=== PATIENT | male | born 1935 | race Caucasian/White ===

== ENCOUNTER 2016-11-23 07:40 | Outpatient (CLI) | payer MEDICARE, OTHER ==
[2016-11-23 08:00] LABS: BASOPHILS # (AUTO) 0.1 10^3/uL (0.0-0.1); BASOPHILS % (AUTO) 0.8 %; EOSINOPHILS # (AUTO) 0.3 10^3/uL (0.0-0.7); EOSINOPHILS % (AUTO) 4.1 %; HCT - HEMATOCRIT 40.5 % (42.0-52.0); HGB - HEMOGLOBIN 14.1 g/dL (14.0-18.0); LYMPHOCYTES # (AUTO) 1.6 10^3/uL (1.5-3.5); MEAN CORPUSCULAR HEMOGLOBIN 31.4 pg (27.0-31.0); MEAN CORPUSCULAR HGB CONC 34.8 g/dL (32.0-36.0); MEAN CORPUSCULAR VOLUME 90.2 fL (80.0-94.0); MEAN PLATELET VOLUME 8.1 fL (7.4-11.4); MONOCYTES # (AUTO) 0.6 10^3/uL (0.0-1.0); MONOCYTES % (AUTO) 8.5 %; NEUTROPHILS % (AUTO) 61.6 %; RED BLOOD COUNT 4.49 10^6/uL (4.70-6.10); RED CELL DISTRIBUTION WIDTH 13.1 % (12.0-15.0); UNCORRECTED WHITE BLOOD COUNT 6.5 x10^3/uL; WHITE BLOOD COUNT 6.5 x10^3/uL (4.8-10.8)
[2016-11-23 08:16] LABS: ALBUMIN/GLOBULIN RATIO 1.3 (1.0-2.2); BILIRUBIN,TOTAL 0.9 mg/dL (0.2-1.0); BUN - BLOOD UREA NITROGEN 13 mg/dL (6-20); CALCIUM 10.3 mg/dL (8.5-10.3); CARBON DIOXIDE - CO2 31 mmol/L (21-32); CHLORIDE 95 mmol/L (101-111); CHOL/HDL RATIO 3.2 (<5.0); CHOLESTEROL 174 mg/dL; GFR - MDRD 72 (>89); GLUCOSE 108 mg/dL (70-100); HDL CHOLESTEROL 55 mg/dL; LDL/HDL RATIO 1.6 (<3.6); POTASSIUM 4.4 mmol/L (3.5-5.0); SODIUM 133 mmol/L (135-145); TOTAL PROTEIN 8.2 g/dL (6.7-8.2); TRIGLYCERIDES 149 mg/dL; VLDL CHOLESTEROL 30 mg/dL
== END 2016-11-23 07:41 | disposition home or self-care (01) ==
LOC: LAB 07:40
PROVIDERS: ATTEND Internal Medicine
DX: E03.9 Hypothyroidism, unspecified (principal); C61 Malignant neoplasm of prostate; E78.2 Mixed hyperlipidemia; Z79.899 Other long term (current) drug therapy
CPT/HCPCS: 36415; 80053; 80061; 84153; 84443; 85025

== ENCOUNTER 2017-12-14 10:12 | Outpatient (CLI) | payer MEDICARE, OTHER ==
--- NOTE | 2017-12-14 10:58 | XRAY Report ---
Procedure Date: 12/14/2017 Accession Number: [id number] / [id number] Procedure: XR - Pelvis 1 View CPT Code: FULL RESULT: EXAM: Pelvis 1 View DATE: 12/14/2017 10:51 AM CLINICAL HISTORY: BACK PAIN, LUMBAR WITH RADICULOPATHY COMPARISON: None. TECHNIQUE: 1 view. FINDINGS: Bones: Normal. No fracture or bone lesion. Joints: Mild degenerative changes of the hip joints. Soft Tissues: Postoperative changes. IMPRESSION: Mild osteoarthritis of the hips. RADIA
--- NOTE | 2017-12-14 10:58 | XRAY Report ---
Procedure Date: 12/14/2017 Accession Number: [id number] / [id number] Procedure: XR - Lumbar Spine Complete CPT Code: FULL RESULT: EXAM: Lumbar Spine Complete DATE: 12/14/2017 10:51 AM CLINICAL HISTORY: BACK PAIN WITH LUMBAR RADICULOPATHY COMPARISON: None. TECHNIQUE: 4 views. FINDINGS: Alignment: Mild degenerative anterolisthesis of L4 on L5. Bones: Five [id number] lumbar vertebral bodies are present. No fractures or bone lesions. Disks: Moderate degenerative disc disease. Facets: Moderate facet arthropathy. Sacroiliac Joints: Unremarkable. Soft Tissues: Normal bowel gas pattern. 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 IMPRESSION: Moderate degenerative changes, with degenerative anterolisthesis of L4 on L5. No evidence of fracture. RADIA
== END 2017-12-14 10:13 | disposition home or self-care (01) ==
LOC: DI 10:12
PROVIDERS: ATTEND Physician Assistant Medical
DX: M51.16 Intervertebral disc disorders with radiculopathy, lumbar region (principal); M16.0 Bilateral primary osteoarthritis of hip; Z85.46 Personal history of malignant neoplasm of prostate
CPT/HCPCS: 72110; 72170

== ENCOUNTER 2018-11-21 09:56 | Outpatient (CLI) | payer MEDICARE, OTHER ==
[2018-11-21 10:34] LABS: VBG PH 7.31 (7.31-7.41)
[2018-11-21 11:12] LABS: THYROID STIMULATING HORMONE 2.96 uIU/mL (0.34-5.60)
[2018-11-21 11:14] LABS: FREE T4 (FREE THYROXINE) 0.93 ng/dL (0.58-1.64)
== END 2018-11-21 09:57 | disposition home or self-care (01) ==
LOC: LAB 09:56
PROVIDERS: ATTEND Family Medicine
DX: K59.09 Other constipation (principal); E21.3 Hyperparathyroidism, unspecified; E83.52 Hypercalcemia
CPT/HCPCS: 36415; 80048; 82330; 84439; 84443; 84481

== ENCOUNTER 2019-02-20 16:28 | Outpatient (CLI) | payer MEDICARE, OTHER ==
--- NOTE | 2019-02-21 10:45 | XRAY Report ---
Reason: KNEE PAIN,ACUTE Procedure Date: 02/20/2019 Accession Number: [id number] / [id number] Procedure: XR - Knee 3 View RT CPT Code: FULL RESULT: EXAM: RIGHT KNEE RADIOGRAPHY EXAM DATE: 02/20/2019 04:45 PM. CLINICAL HISTORY: KNEE Pain, acute. COMPARISON: None. TECHNIQUE: 3 views. FINDINGS: Bones: Normal. No fractures or bone lesions. Joints: Minimal degenerative changes with ossific spurring, worse at the patellofemoral joint. No effusion. No subluxations. Soft Tissues: Atherosclerotic disease. No soft tissue swelling. IMPRESSION: Minimal degenerative changes of the right knee without acute abnormality seen. RADIA
== END 2019-02-20 16:29 | disposition home or self-care (01) ==
LOC: DI 16:28
PROVIDERS: ATTEND Family Medicine
DX: M17.11 Unilateral primary osteoarthritis, right knee (principal)

== ENCOUNTER 2019-02-28 12:09 | Emergency (ER) | payer MEDICARE, OTHER ==
[2019-02-28 12:56] LABS: BASOPHILS # (AUTO) 0.1 10^3/uL (0.0-0.1); BASOPHILS % (AUTO) 0.6 %; EOSINOPHILS # (AUTO) 0.1 10^3/uL (0.0-0.7); EOSINOPHILS % (AUTO) 1.5 %; LYMPHOCYTES # (AUTO) 1.2 10^3/uL (1.5-3.5); MEAN CORPUSCULAR HEMOGLOBIN 31.4 pg (27.0-31.0); MEAN CORPUSCULAR HGB CONC 33.9 g/dL (32.0-36.0); MEAN CORPUSCULAR VOLUME 92.8 fL (80.0-94.0); MONOCYTES # (AUTO) 0.5 10^3/uL (0.0-1.0); MONOCYTES % (AUTO) 5.7 %; NEUTROPHILS # (AUTO) 6.2 10^3/uL (1.5-6.6); NEUTROPHILS % (AUTO) 76.8 %; PLT - PLATELET COUNT 234 10^3/uL (130-450); RED BLOOD COUNT 4.14 10^6/uL (4.70-6.10); RED CELL DISTRIBUTION WIDTH 12.4 % (12.0-15.0); WHITE BLOOD COUNT 8.1 x10^3/uL (4.8-10.8)
[2019-02-28 13:01] LABS: INR 1.1 (0.8-1.2); PT - PROTHROMBIN TIME 11.9 secs (9.9-12.6)
--- NOTE | 2019-02-28 13:08 | ED Physician Documentation ---
PD HPI GI BLEED - Stated complaint Stated Complaint: blood in stool - Chief complaint Chief Complaint: Abd Pain - History obtained from History obtained from: Patient, Family - History of Present Illness Timing - onset: Enter time (0900), Today Timing - duration: Hours Timing - details: Abrupt onset, Now resolved Associated symptoms: BRBPR Contributing factors: Other (corn byrne sized bowel movement covered in blood) Improved by: BM Similar symptoms before: Diagnosis (bleeding diverticula) Recently seen: Not recently seen - Additional information Additional information: 83-year-old male with a prior history of diverticulitis and a bleeding diverticula who is had a section of his colon removed has had a corn cob sized bowel movement today that was covered in blood. He states that he had this about 9 AM he did not have any specific pain associated with this and there was some fair amount of blood in the commode as well as some small clots and he has not had any further blood out per rectum and does not have any urgency to defecate. He is not lightheaded and dizzy. He does have a prior history of GI bleed requiring acute transfusion and at that time did have symptoms. Review of Systems Constitutional: denies: Fever Eyes: denies: Decreased vision Ears: denies: Ear pain Nose: denies: Congestion Respiratory: denies: Cough GI: reports: Constipation, Bloody / black stool. denies: Abdominal Pain, Vomiting : denies: Dysuria, Frequency PD PAST MEDICAL HISTORY - Past Medical History Past Medical History: Yes Cardiovascular: Other Respiratory: None Endocrine/Autoimmune: None GI: GERD, Chronic constipation, Hemorrhoids, Diverticulitis : None HEENT: None Psych: None Musculoskeletal: None Derm: None - Past Surgical History Past Surgical History: Yes General: Appendectomy, Bowel surgery, Colonoscopy, EGD Cardiovascular: Valve replacement HEENT: Cataracts - Present Medications Home Medications: Ambulatory Orders Medication Instructions Recorded Confirmed Levothyroxine [Synthroid] 25 mcg ORAL DAILY 12/10/14 01/24/16 Rosuvastatin Calcium [Crestor] 10 mg PO DAILY 12/10/14 01/24/16 Docusate Sodium 100Mg Capsule 100 mg PO DAILY 12/19/14 01/24/16 [Colace] Ferrous Sulfate [Slow Release Iron] 45 mg PO DAILY 12/19/14 01/24/16 Omeprazole 20 mg PO DAILY 12/19/14 01/24/16 Acetaminophen 1,000 mg PO Q6H PRN 01/15/16 01/24/16 Aspirin 325 mg PO DAILY 01/15/16 01/24/16 Ciclopirox/Ure/Camph/Menth/Euc 1 applic TOP PRN PRN 01/15/16 01/24/16 [Ciclopirox 8% Treatment Kit] Clopidogrel [Plavix] 75 mg PO DAILY 01/15/16 01/24/16 Docusate Sodium 250Mg Capsule 1 tab PO PRN PRN 01/15/16 01/24/16 [Colace] Guaifenesin/Pseudoephedrne HCl 1 tab PO BID 01/15/16 01/24/16 [Mucinex D ER 600-60 mg Tablet] Ibuprofen 600 mg PO Q6H PRN 01/15/16 01/24/16 Metoprolol Succinate [Toprol Xl] 12.5 mg PO DAILY 01/15/16 01/24/16 Phenylephrine HCl/[place] Butter 1 supp.rect DAILY PRN 01/15/16 01/24/16 [Preparation H Suppository] Polyethylene Glycol 3350 [Miralax] 1 cap PO PRN PRN 01/15/16 01/24/16 - Allergies Allergies/Adverse Reactions: Allergies Allergy/AdvReac Type Severity Reaction Status Date / Time oxycodone Allergy Unknown Verified 02/28/19 12:23 epinephrine AdvReac Respiratory Verified 02/28/19 12:23 - Social History Does the pt smoke?: No Smoking Status: Never smoker Does the pt drink ETOH?: Yes Does the pt have substance abuse?: No - Immunizations Immunizations are current?: Yes - POLST Patient has POLST: No PD ED PE NORMAL - Vitals Vital signs reviewed: Yes (normal ) - General General: Alert and oriented X 3, No acute distress, Well developed/nourished - HEENT HEENT: Atraumatic, PERRL, EOMI - Neck Neck: Supple, no meningeal sign, No bony TTP - Cardiac Cardiac: RRR, Other (2/6 holosystolic murmer at LSB) - Respiratory Respiratory: No respiratory distress, Clear bilaterally - Abdomen Abdomen: Soft, Non tender - Rectal Rectal: Other (There is blood over the rectum dried and there is old blood in the vault on the glove. ) - Back Back: No CVA TTP, No spinal TTP - Derm Derm: Normal color, Warm and dry, No rash - Extremities Extremities: No deformity, No edema - Neuro Neuro: Alert and oriented X 3, demo specialist 2-12 intact, No motor deficit, No sensory deficit, Normal speech Eye Opening: Spontaneous Motor: Obeys Commands Verbal: Oriented GCS Score: 15 - Psych Psych: Normal mood, Normal affect Results - Vitals Vitals: Vital Signs - 24 hr 02/28/19 02/28/19 12:23 13:12 Temperature 36.9 C Heart Rate 73 64 Respiratory 17 24 Rate Blood Pressure 99/77 135/81 H O2 Saturation 100 94 Oxygen O2 Source Room air - Labs Labs: Laboratory Tests 02/28/19 02/28/19 02/28/19 12:05 12:05 12:05 WBC 8.1 RBC 4.14 L Hgb 13.0 L Hct 38.4 L MCV 92.8 MCH 31.4 H MCHC 33.9 RDW 12.4 Plt Count 234 MPV 10.0 Neut # (Auto) 6.2 Lymph # (Auto) 1.2 L [place] # (Auto) 0.5 Eos # (Auto) 0.1 Baso # (Auto) 0.1 Absolute Nucleated RBC 0.00 Nucleated RBC % 0.0 PT 11.9 INR 1.1 Sodium 138 Potassium 4.2 Chloride 96 L Carbon Dioxide 30 Anion Gap 12.0 BUN 24 H Creatinine 1.0 Estimated GFR (MDRD) 71 L Glucose 93 Calcium 9.9 Total Bilirubin 0.7 AST 25 ALT 18 Alkaline Phosphatase 77 Total Protein 8.3 H Albumin 4.5 Globulin 3.8 Albumin/Globulin Ratio 1.2 Lipase 47 Blood Type Antibody Screen 02/28/19 02/28/19 12:10 14:10 WBC RBC Hgb 10.8 L Hct 32.4 L MCV MCH MCHC RDW Plt Count MPV Neut # (Auto) Lymph # (Auto) [place] # (Auto) Eos # (Auto) Baso # (Auto) Absolute Nucleated RBC Nucleated RBC % PT INR Sodium Potassium Chloride Carbon Dioxide Anion Gap BUN Creatinine Estimated GFR (MDRD) Glucose Calcium Total Bilirubin AST ALT Alkaline Phosphatase Total Protein Albumin Globulin Albumin/Globulin Ratio Lipase Blood Type B POSITIVE Antibody Screen NEGATIVE PD MEDICAL DECISION MAKING - ED course Complexity details: reviewed old records, reviewed results, re-evaluated patient, considered differential, d/w patient, d/w family ED course: 83-year-old male with prior history of GI bleeds has developed acute blood loss today associated with a corn cob sized bowel movement and he has not had blood out since 9 AM. Despite this his initial H&H were mildly depressed and a second H&H shows significant drop despite no further blood out. Dr. Carr is consulted in the case and will evaluate the patient in the ED. Surgeon consults the hospitalist re: pre-op eval and is told to seek higher level of care in this patient with aortic stenosis. Departure - Departure Disposition: 02 Transfer Acute Care Hosp Clinical Impression: Rectal bleeding, Acute blood loss anemia
[2019-02-28 13:11] LABS: ALBUMIN 4.5 g/dL (3.2-5.5); ALBUMIN/GLOBULIN RATIO 1.2 (1.0-2.2); BILIRUBIN,TOTAL 0.7 mg/dL (0.2-1.0); CALCIUM 9.9 mg/dL (8.5-10.3); TOTAL PROTEIN 8.3 g/dL (6.7-8.2)
[2019-02-28 14:16] LABS: HGB - HEMOGLOBIN 10.8 g/dL (14.0-18.0)
[2019-02-28 15:31] LABS: BILIRUBIN,URINE NEGATIVE (NEGATIVE); GLUCOSE, URINE (UA) NEGATIVE (NEGATIVE); KETONES,URINE (UA) NEGATIVE (NEGATIVE); LEUKOCYTE ESTERASE, URINE NEGATIVE (NEGATIVE); NITRITE,URINE NEGATIVE (NEGATIVE); OCCULT BLOOD,URINE NEGATIVE (NEGATIVE); PROTEIN,URINE NEGATIVE (NEGATIVE); UROBILINOGEN,URINE 0.2 (NORMAL) E.U./dL (NORMAL)
[2019-02-28 15:32] LABS: CLARITY,URINE CLEAR (CLEAR)
[2019-02-28 16:52] VITALS: BP 162/86
== END 2019-02-28 17:35 | disposition short-term general hospital (02) ==
LOC: ED 12:09
DX: K62.5 Hemorrhage of anus and rectum (principal); D62 Acute posthemorrhagic anemia; Z87.19 Personal history of other diseases of the digestive system; Z90.49 Acquired absence of other specified parts of digestive tract; I35.0 Nonrheumatic aortic (valve) stenosis; Z79.82 Long term (current) use of aspirin
CPT/HCPCS: 36415; 80053; 81001; 81003; 83690; 85014; 85018; 85025; 85610; 86850; 86900; 86901; 87086; 99284; 99285

== ENCOUNTER 2019-02-28 17:27 | Outpatient (CLI) | payer MEDICARE, OTHER | END 2019-02-28 17:28 | disposition short-term general hospital (02) | LOC: EMS 17:27 | PROVIDERS: ATTEND Surgery | DX: K92.2 Gastrointestinal hemorrhage, unspecified (principal); I35.0 Nonrheumatic aortic (valve) stenosis | CPT/HCPCS: A0425; A0426 ==

== ENCOUNTER 2019-03-11 14:32 | Outpatient (CLI) | payer MEDICARE, OTHER ==
[2019-03-11 15:00] LABS: BASOPHILS # (AUTO) 0.1 10^3/uL (0.0-0.1); BASOPHILS % (AUTO) 1.1 %; EOSINOPHILS # (AUTO) 0.1 10^3/uL (0.0-0.7); EOSINOPHILS % (AUTO) 1.1 %; HGB - HEMOGLOBIN 11.7 g/dL (14.0-18.0); LYMPHOCYTES # (AUTO) 1.5 10^3/uL (1.5-3.5); LYMPHOCYTES % (AUTO) 19.8 %; MEAN CORPUSCULAR HEMOGLOBIN 30.5 pg (27.0-31.0); MEAN CORPUSCULAR HGB CONC 32.7 g/dL (32.0-36.0); MEAN CORPUSCULAR VOLUME 93.5 fL (80.0-94.0); MEAN PLATELET VOLUME 9.6 fL (7.4-11.4); MONOCYTES # (AUTO) 0.7 10^3/uL (0.0-1.0); MONOCYTES % (AUTO) 9.4 %; NEUTROPHILS # (AUTO) 5.1 10^3/uL (1.5-6.6); NEUTROPHILS % (AUTO) 67.9 %; PLT - PLATELET COUNT 304 10^3/uL (130-450); RED BLOOD COUNT 3.83 10^6/uL (4.70-6.10); RED CELL DISTRIBUTION WIDTH 12.7 % (12.0-15.0); WHITE BLOOD COUNT 7.5 x10^3/uL (4.8-10.8)
[2019-03-11 15:06] LABS: CALCIUM 9.8 mg/dL (8.5-10.3)
== END 2019-03-11 14:33 | disposition home or self-care (01) ==
LOC: LAB 14:32
PROVIDERS: ATTEND Family Medicine
DX: K57.31 Diverticulosis of large intestine without perforation or abscess with bleeding (principal)
CPT/HCPCS: 36415; 80048; 85025

== ENCOUNTER 2019-03-18 20:53 | Emergency (ER) | payer MEDICARE, OTHER ==
[2019-03-18 21:28] LABS: BASOPHILS # (AUTO) 0.1 10^3/uL (0.0-0.1); BASOPHILS % (AUTO) 1.2 %; EOSINOPHILS # (AUTO) 0.2 10^3/uL (0.0-0.7); EOSINOPHILS % (AUTO) 2.5 %; HGB - HEMOGLOBIN 11.3 g/dL (14.0-18.0); LYMPHOCYTES # (AUTO) 1.5 10^3/uL (1.5-3.5); LYMPHOCYTES % (AUTO) 23.2 %; MEAN CORPUSCULAR HEMOGLOBIN 30.3 pg (27.0-31.0); MEAN CORPUSCULAR HGB CONC 32.1 g/dL (32.0-36.0); MEAN CORPUSCULAR VOLUME 94.4 fL (80.0-94.0); MEAN PLATELET VOLUME 9.6 fL (7.4-11.4); MONOCYTES # (AUTO) 0.5 10^3/uL (0.0-1.0); NEUTROPHILS # (AUTO) 4.2 10^3/uL (1.5-6.6); NEUTROPHILS % (AUTO) 64.8 %; PLT - PLATELET COUNT 237 10^3/uL (130-450); RED BLOOD COUNT 3.73 10^6/uL (4.70-6.10); RED CELL DISTRIBUTION WIDTH 12.8 % (12.0-15.0); WHITE BLOOD COUNT 6.4 x10^3/uL (4.8-10.8)
[2019-03-18 21:41] LABS: ALBUMIN 4.1 g/dL (3.2-5.5); ALBUMIN/GLOBULIN RATIO 1.3 (1.0-2.2); BILIRUBIN,TOTAL 0.5 mg/dL (0.2-1.0); CALCIUM 9.6 mg/dL (8.5-10.3); TOTAL PROTEIN 7.3 g/dL (6.7-8.2)
--- NOTE | 2019-03-18 23:30 | ED Physician Documentation ---
PD HPI GI BLEED - Stated complaint Stated Complaint: BLOOD IN STOOL - Chief complaint Chief Complaint: Abd Pain - History obtained from History obtained from: Patient, Family - History of Present Illness Timing - onset: Today Timing - duration: Hours Timing - details: Abrupt onset, Still present Associated symptoms: BRBPR, Abdominal pain Contributing factors: Other (hx of diverticular bleed) Improved by: Laying still Similar symptoms before: Diagnosis (diverticular bleeding) Recently seen: Admitted - Additional information Additional information: 83-year-old male with prior history of diverticulitis and bleeding diverticula who is had a portion of the colon removed his had a bowel movement again today associated with bleeding. He had blood around the stool and had clots in the toilet. He has had a prior similar episode 3 weeks ago at which time is transferred to [facility] [place] and he had a syncopal episode the day of discharge and required 2 more days of hospitalization. He states that he had no further bloody output and his blood count had stabilized. There was no specific explanation of why he had the syncopal episode. He was eventually diagnosed with vasovagal syncope. 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 Review of Systems Constitutional: denies: Fever Ears: denies: Ear pain Nose: denies: Congestion Throat: denies: Sore throat Cardiac: denies: Chest pain / pressure, Palpitations Respiratory: denies: Dyspnea, Cough GI: reports: Abdominal Pain (minimal), Bloody / black stool. denies: Nausea, Vomiting, Constipation, Diarrhea : denies: Dysuria, Frequency PD PAST MEDICAL HISTORY - Past Medical History Past Medical History: Yes Cardiovascular: High cholesterol, Valve disorder, Other Respiratory: None Neuro: None Endocrine/Autoimmune: None GI: GERD, Chronic constipation, Hemorrhoids, Diverticulitis : None HEENT: None Psych: None Musculoskeletal: None Derm: None Other Past Medical History: transcath heart valve - Past Surgical History Past Surgical History: Yes General: Appendectomy, Bowel surgery, Colonoscopy, EGD Cardiovascular: Valve replacement HEENT: Cataracts - Present Medications Home Medications: Ambulatory Orders Medication Instructions Recorded Confirmed Levothyroxine [Synthroid] 25 mcg ORAL DAILY 12/10/14 01/24/16 Rosuvastatin Calcium [Crestor] 10 mg PO DAILY 12/10/14 01/24/16 Docusate Sodium 100Mg Capsule 100 mg PO DAILY 12/19/14 01/24/16 [Colace] Ferrous Sulfate [Slow Release Iron] 45 mg PO DAILY 12/19/14 01/24/16 Omeprazole 20 mg PO DAILY 12/19/14 01/24/16 Acetaminophen 1,000 mg PO Q6H PRN 01/15/16 01/24/16 Aspirin 325 mg PO DAILY 01/15/16 01/24/16 Ciclopirox/Ure/Camph/Menth/Euc 1 applic TOP PRN PRN 01/15/16 01/24/16 [Ciclopirox 8% Treatment Kit] Clopidogrel [Plavix] 75 mg PO DAILY 01/15/16 01/24/16 Docusate Sodium 250Mg Capsule 1 tab PO PRN PRN 01/15/16 01/24/16 [Colace] Guaifenesin/Pseudoephedrne HCl 1 tab PO BID 01/15/16 01/24/16 [Mucinex D ER 600-60 mg Tablet] Ibuprofen 600 mg PO Q6H PRN 01/15/16 01/24/16 Metoprolol Succinate [Toprol Xl] 12.5 mg PO DAILY 01/15/16 01/24/16 Phenylephrine HCl/[place] Butter 1 supp.rect DAILY PRN 01/15/16 01/24/16 [Preparation H Suppository] Polyethylene Glycol 3350 [Miralax] 1 cap PO PRN PRN 01/15/16 01/24/16 - Allergies Allergies/Adverse Reactions: Allergies Allergy/AdvReac Type Severity Reaction Status Date / Time oxycodone Allergy Unknown Verified 03/18/19 20:58 epinephrine AdvReac Respiratory Verified 03/18/19 20:58 - Social History Does the pt smoke?: No Smoking Status: Never smoker Does the pt drink ETOH?: Yes Does the pt have substance abuse?: No - Immunizations Immunizations are current?: Yes - POLST Patient has POLST: No PD ED PE NORMAL - Vitals Vital signs reviewed: Yes (hypertensive ) - General General: Alert and oriented X 3, No acute distress, Well developed/nourished - HEENT HEENT: Atraumatic, PERRL, EOMI - Neck Neck: Supple, no meningeal sign - Cardiac Cardiac: RRR, No murmur - Respiratory Respiratory: No respiratory distress, Clear bilaterally - Abdomen Abdomen: Soft, Non tender - Back Back: No CVA TTP, No spinal TTP - Derm Derm: Normal color, Warm and dry, No rash - Extremities Extremities: No deformity, No edema - Neuro Neuro: Alert and oriented X 3, touch up worker 2-12 intact, No motor deficit, No sensory deficit, Normal speech Eye Opening: Spontaneous Motor: Obeys Commands Verbal: Oriented GCS Score: 15 - Psych Psych: Normal mood, Normal affect Results - Vitals Vitals: Vital Signs - 24 hr 03/18/19 03/18/19 03/19/19 20:58 22:49 00:00 Temperature 37 C 36.6 C Heart Rate 79 66 61 Respiratory 16 18 18 Rate Blood Pressure 188/76 H 158/87 H 126/73 O2 Saturation 99 99 96 03/19/19 03/19/19 03/19/19 02:12 04:10 06:15 Temperature 36.9 C 36.7 C Heart Rate 66 61 72 Respiratory 14 16 15 Rate Blood Pressure 150/74 H 143/74 H 125/76 O2 Saturation 98 98 97 Oxygen O2 Source Room air - Labs Labs: Laboratory Tests 03/18/19 03/18/19 03/18/19 21:24 21:24 23:44 WBC 6.4 RBC 3.73 L Hgb 11.3 L Hct 35.2 L MCV 94.4 H MCH 30.3 MCHC 32.1 RDW 12.8 Plt Count 237 MPV 9.6 Neut # (Auto) 4.2 Lymph # (Auto) 1.5 [place] # (Auto) 0.5 Eos # (Auto) 0.2 Baso # (Auto) 0.1 Absolute Nucleated RBC 0.00 Nucleated RBC % 0.0 Sodium 136 Potassium 4.5 Chloride 99 L Carbon Dioxide 28 Anion Gap 9.0 BUN 18 Creatinine 1.0 Estimated GFR (MDRD) 71 L Glucose 146 H Calcium 9.6 Total Bilirubin 0.5 AST 25 ALT 17 Alkaline Phosphatase 64 Total Protein 7.3 Albumin 4.1 Globulin 3.2 Albumin/Globulin Ratio 1.3 Lipase 64 H Urine Color Urine Clarity Urine pH Ur Specific [place] Urine Protein Urine Glucose (UA) Urine Ketones Urine Occult Blood Urine Nitrite Urine Bilirubin Urine Urobilinogen Ur Leukocyte Esterase Ur Microscopic Review Urine Culture Comments Blood Type B POSITIVE Antibody Screen NEGATIVE 03/19/19 03/19/19 03/19/19 00:03 02:02 06:37 WBC RBC Hgb 10.4 L 10.2 L Hct 31.4 L 30.4 L MCV MCH MCHC RDW Plt Count MPV Neut # (Auto) Lymph # (Auto) [place] # (Auto) Eos # (Auto) Baso # (Auto) Absolute Nucleated RBC Nucleated RBC % Sodium Potassium Chloride Carbon Dioxide Anion Gap BUN Creatinine Estimated GFR (MDRD) Glucose Calcium Total Bilirubin AST ALT Alkaline Phosphatase Total Protein Albumin Globulin Albumin/Globulin Ratio Lipase Urine Color YELLOW Urine Clarity CLEAR Urine pH 6.0 Ur Specific [place] 1.015 Urine Protein NEGATIVE Urine Glucose (UA) NEGATIVE Urine Ketones NEGATIVE Urine Occult Blood TRACE-INTA Urine Nitrite NEGATIVE Urine Bilirubin NEGATIVE Urine Urobilinogen 0.2 (NORMAL) Ur Leukocyte Esterase NEGATIVE Ur Microscopic Review NOT INDICATED Urine Culture Comments NOT INDICATED Blood Type Antibody Screen PD MEDICAL DECISION MAKING - ED course Complexity details: reviewed old records, reviewed results, re-evaluated patient, considered differential, d/w patient, d/w family ED course: 83 y/o male with recurrent bleeding had spontaneous resolution last month and today he is kept in the ED for repeat H&H. He has a BM in the ED with some clot present a small amount of blood per the RN. Departure - Departure Disposition: 01 Home, Self Care Clinical Impression: Lower GI bleeding Condition: Stable Instructions: ED Hematochezia Stable Follow-Up: Arie Huynh MD [Primary Care Provider] -
[2019-03-19 00:10] LABS: BILIRUBIN,URINE NEGATIVE (NEGATIVE); CLARITY,URINE CLEAR (CLEAR); GLUCOSE, URINE (UA) NEGATIVE (NEGATIVE); KETONES,URINE (UA) NEGATIVE (NEGATIVE); LEUKOCYTE ESTERASE, URINE NEGATIVE (NEGATIVE); NITRITE,URINE NEGATIVE (NEGATIVE); OCCULT BLOOD,URINE TRACE-INTA (NEGATIVE); PROTEIN,URINE NEGATIVE (NEGATIVE); UROBILINOGEN,URINE 0.2 (NORMAL) E.U./dL (NORMAL)
[2019-03-19 02:10] LABS: HGB - HEMOGLOBIN 10.4 g/dL (14.0-18.0)
[2019-03-19 06:40] LABS: HGB - HEMOGLOBIN 10.2 g/dL (14.0-18.0)
[2019-03-19 08:23] VITALS: BP 143/79
== END 2019-03-19 08:27 | disposition home or self-care (01) ==
LOC: ED 20:53
DX: K92.1 Melena (principal); R10.9 Unspecified abdominal pain; Z87.19 Personal history of other diseases of the digestive system; Z90.49 Acquired absence of other specified parts of digestive tract; Z95.4 Presence of other heart-valve replacement; Z79.82 Long term (current) use of aspirin
CPT/HCPCS: 36415; 80053; 81001; 81003; 83690; 85014; 85018; 85025; 86850; 86900; 86901; 87086; 99282; 99284

== ENCOUNTER 2022-11-16 12:53 | Outpatient (CLI) | payer MEDICARE, OTHER ==
--- NOTE | 2022-11-17 10:09 | XRAY Report ---
PROCEDURE: Pelvis 3 View INDICATIONS: OTHER BURSITIS OF HIP TECHNIQUE: 3 view(s) of the pelvis acquired. COMPARISON: None. FINDINGS: Bones: No fractures or dislocations. No suspicious bony lesions. Moderate osteoarthritic changes in hips and sacrum iliac joints bilaterally. Moderate degenerative disc and facet disease in the lower lumbar spine. Soft tissues: Visualized bowel gas pattern is normal. No suspicious soft tissue calcifications. M ultiple surgical clips are present in pelvis. IMPRESSION: 1. No acute bony abnormality. 2. Mild osteoarthritis. 3. To evaluate ascites, MRI may be helpful. Reviewed by: Traci Birmingham MD on 11/17/2022 10:08 AM PDT Approved by: Traci Birmingham MD on 11/17/2022 10:08 AM PDT Station ID: [id number]
== END 2022-11-16 12:54 | disposition home or self-care (01) ==
LOC: DI 12:53
PROVIDERS: ATTEND Family Medicine
DX: M70.71 Other bursitis of hip, right hip (principal); M16.0 Bilateral primary osteoarthritis of hip; M47.898 Other spondylosis, sacral and sacrococcygeal region

== ENCOUNTER 2022-12-19 12:47 | Outpatient (CLI) | payer MEDICARE, OTHER ==
[2022-12-19 13:26] LABS: BASOPHILS # (AUTO) 0.1 10^3/uL (0.0-0.1); BASOPHILS % (AUTO) 0.8 %; EOSINOPHILS # (AUTO) 0.1 10^3/uL (0.0-0.7); EOSINOPHILS % (AUTO) 2.2 %; HCT - HEMATOCRIT 37.4 % (42.0-52.0); HGB - HEMOGLOBIN 12.5 g/dL (14.0-18.0); LYMPHOCYTES # (AUTO) 1.4 10^3/uL (1.5-3.5); LYMPHOCYTES % (AUTO) 21.2 %; MEAN CORPUSCULAR HEMOGLOBIN 30.9 pg (27.0-31.0); MEAN CORPUSCULAR HGB CONC 33.4 g/dL (32.0-36.0); MEAN CORPUSCULAR VOLUME 92.3 fL (80.0-94.0); MEAN PLATELET VOLUME 9.9 fL (7.4-11.4); MONOCYTES # (AUTO) 0.5 10^3/uL (0.0-1.0); MONOCYTES % (AUTO) 8.2 %; NEUTROPHILS # (AUTO) 4.4 10^3/uL (1.5-6.6); NEUTROPHILS % (AUTO) 67.3 %; PLT - PLATELET COUNT 222 10^3/uL (130-450); RED BLOOD COUNT 4.05 10^6/uL (4.70-6.10); RED CELL DISTRIBUTION WIDTH 12.6 % (12.0-15.0); WHITE BLOOD COUNT 6.5 x10^3/uL (4.8-10.8)
[2022-12-19 13:30] LABS: CALCIUM, IONIZED 1.25 mmol/L (1.15-1.33); VBG PH 7.364 (7.31-7.41)
[2022-12-19 13:34] LABS: ALBUMIN 4.2 g/dL (3.2-5.5); ALBUMIN/GLOBULIN RATIO 1.2 (1.0-2.2); BILIRUBIN,TOTAL 0.6 mg/dL (0.2-1.0); CREATININE 1.1 mg/dL (0.6-1.2); POTASSIUM 4.4 mmol/L (3.5-5.0); TOTAL PROTEIN 7.8 g/dL (6.7-8.2)
[2022-12-19 13:57] LABS: FREE T3 2.61 pg/mL (2.5-3.9); THYROID STIMULATING HORMONE 2.21 uIU/mL (0.34-5.60)
[2022-12-19 13:59] LABS: FREE T4 (FREE THYROXINE) 0.86 ng/dL (0.58-1.64)
== END 2022-12-19 12:48 | disposition home or self-care (01) ==
LOC: LAB 12:47
PROVIDERS: ATTEND Family Medicine
DX: E03.9 Hypothyroidism, unspecified (principal); R63.4 Abnormal weight loss; F03.90 Unspecified dementia, unspecified severity, without behavioral disturbance, psychotic disturbance, mood disturbance, and anxiety; E21.3 Hyperparathyroidism, unspecified; F32.A Depression, unspecified; C61 Malignant neoplasm of prostate
CPT/HCPCS: 36415; 80053; 82330; 82397; 84153; 84439; 84443; 84481; 85025